=== PATIENT | female | born 1970 | race Caucasian/White ===

== ENCOUNTER 2024-05-04 14:00 | Emergency (ER) | payer BC ==
[~2024-05-04] VITALS: Ht 172.7 cm; Wt 117.9 kg
[2024-05-04] MEDS ORDERED: FAMOTIDINE 50 ML IV ONE (14:10)
[2024-05-04] MEDS ORDERED: methylPREDNISolone sod succ 125 MG VIAL IV ONE (14:10)
[2024-05-04] MEDS ORDERED: diphenhydrAMINE hydrochloride 50 MG/ML VIAL IV ONE (14:10)
[2024-05-04] MEDS ORDERED: PREDNISONE20 M1 PO (16:27)
[2024-05-04] MEDS ORDERED: EPIPEN 2-P0.3 MG/0.3 IJ (16:27)
== END 2024-05-04 16:37 | disposition home or self-care (01) ==
LOC: ED 14:00
DX: T63.441A Toxic effect of venom of bees, accidental (unintentional), initial encounter (principal); T78.2XXA Anaphylactic shock, unspecified, initial encounter; R42 Dizziness and giddiness; R06.02 Shortness of breath; Z91.040 Latex allergy status; Z98.890 Other specified postprocedural states; Y92.89 Other specified places as the place of occurrence of the external cause